=== PATIENT | male | born 1980 | race Caucasian/White ===

== ENCOUNTER 2020-05-02 23:05 | Inpatient (IN) | payer SELFPAY ==
[~2020-05-02] VITALS: Ht 167.6 cm; Wt 100.0 kg
--- NOTE | 2020-05-02 23:46 | NUR ---
PT TO RADIOLOGY VIA STRETCHER AT THIS TIME.
[2020-05-02 23:59] LABS: HEMATOCRIT 41.1 % (42.0-54.0); HEMOGLOBIN 14.5 g/dL (13.5-17.5); LYMPHOCYTES 13.5 % (15-50); MCH 31.8 pg (26.0-34.0); MCHC 35.3 g/dL (31.0-37.0); MCV 90.1 fL (80.0-100.0); MEAN PLATELET VOLUME 8.2 fL (7.4-10.4); NEUTROPHILS 77.5 % (40-80); PLATELET COUNT 189 10x3/uL (130-400); RBC 4.56 10x6/uL (4.20-6.10); RDW 12.8 % (11.5-14.5); WBC 14.7 10x3/uL (4.8-10.8)
[2020-05-03] VITALS (8 sets, daily range): BP systolic 126–165; BP diastolic 81–98; Ht 167.6 cm; Wt 100.0 kg
--- NOTE | 2020-05-03 00:03 | NUR ---
PT RETURNED FROM RADIOLOGY.
[2020-05-03 00:15] LABS: ALBUMIN 3.4 g/dL (3.4-5.0); ALKALINE PHOSPHATASE 70 U/L (30-120); ALT (SGPT) 18 U/L (10-68); BILIRUBIN - TOTAL 0.92 mg/dL (0.2-1.3); CALC OSMOLALITY 268 mosm/kg (275-300); CALCIUM 8.5 mg/dL (8.5-10.1); CARBON DIOXIDE 28.6 mmol/L (21.0-32.0); CHLORIDE - SERUM 99 mmol/L (98-107); CKMB 1.4 U/L (0.0-3.6); GLUCOSE 133 mg/dL (74-106); POTASSIUM - SERUM 3.6 mmol/L (3.5-5.1); PROTEIN - SERUM 7.1 g/dL (6.4-8.2); SODIUM 134 mmol/L (136-145); UREA NITROGEN 10 mg/dL (7-18); eGFR NON AFRICAN AMERICAN 87 mL/min (90-120)
[2020-05-03 02:12] LABS: APTT 28.5 SECONDS (22.8-39.4); INR 1.01 (0.85-1.17); PROTIME 13.2 SECONDS (11.6-15.0)
--- NOTE | 2020-05-03 03:06 | NUR ---
PT'S IV VANCOMYCIN FINISHED AT THIS TIME.
--- NOTE | 2020-05-03 04:34 | NUR ---
PT REQUESTING PAIN MEDICATION, GIVEN ORDERED PRN PAIN MEDICATION.
--- NOTE | 2020-05-03 05:09 | NUR ---
PT GIVEN ICE PACK FOR FACIAL SWELLING AND HEAD OF BED ADJUSTED TO LEVEL OF COMFORT. PT ON MONITOR. CALL LIGHT IN REACH.
[2020-05-03 07:07] LABS: UDS - AMPHET POSITIVE QUAL (NEGATIVE); UDS - BARB NEGATIVE QUAL (NEGATIVE); UDS - BENZO POSITIVE QUAL (NEGATIVE); UDS - COCAINE NEGATIVE QUAL (NEGATIVE); UDS - OPIATE POSITIVE QUAL (NEGATIVE); UDS - PCP NEGATIVE QUAL (NEGATIVE); UDS - THC POSITIVE QUAL (NEGATIVE)
[2020-05-03 07:26] LABS: BILIRUBIN NEGATIVE (NEGATIVE); KETONE NEGATIVE (NEGATIVE); NITRITE NEGATIVE (NEGATIVE); UROBILINOGEN NORMAL mg/dL (< 2)
[2020-05-03 07:27] LABS: WHITE CELLS - URINE 0-5 HPF (0-1)
[2020-05-03 07:28] LABS: BACTERIA NONE SEEN HPF (NONE SEEN); EPITHELIAL CELLS NSEEN /hpf (0-5)
--- NOTE | 2020-05-03 14:20 | NUR ---
RAC PIV PULLED OUT PER PT WHILE AMBULATING TO THE RESTROOM. RESTARTED IN RAC.
--- NOTE | 2020-05-03 15:00 | NUR ---
ZOSYN STOP TIME: 1500
--- NOTE | 2020-05-03 17:10 | NUR ---
VANCOMYCIN STOP TIME: [id number]
[2020-05-04] VITALS: BP 163/93
[2020-05-04 04:00] VITALS: BP 136/86
--- NOTE | 2020-05-04 07:44 | NUR ---
PT RECEIVED ASLEEP IN BED. WAKES TO VOICE. NICOTINE PATCH PLACED PER REQUEST. COMPLAINTS OF PAIN TO LEFT SIDE OF FACE. ASKING WHY IT CANT JUST BE DRAINED.
[2020-05-04 07:52] LABS: BASOPHILS 0.1 % (0-2); EOSINOPHILS 0.5 % (0-7); HEMATOCRIT 42.6 % (42.0-54.0); HEMOGLOBIN 14.4 g/dL (13.5-17.5); IMMATURE GRANULOCYTES 0.3 % (0-5); LYMPHOCYTES 12.5 % (15-50); MCH 31.5 pg (26.0-34.0); MCHC 33.8 g/dL (31.0-37.0); MEAN PLATELET VOLUME 8.9 fL (7.4-10.4); MONOCYTES 12.4 % (2-11); NEUTROPHILS 74.2 % (40-80); PLATELET COUNT 173 10x3/uL (130-400); RBC 4.57 10x6/uL (4.20-6.10); WBC 13.4 10x3/uL (4.8-10.8)
[2020-05-04 08:13] LABS: MCV 93.2 fL (80.0-100.0)
[2020-05-04 08:17] LABS: CALC OSMOLALITY 270 mosm/kg (275-300); CALCIUM 8.1 mg/dL (8.5-10.1); CARBON DIOXIDE 25.5 mmol/L (21.0-32.0); CHLORIDE - SERUM 102 mmol/L (98-107); CREATININE - SERUM 1.1 mg/dL (0.6-1.3); GLUCOSE 152 mg/dL (74-106); POTASSIUM - SERUM 3.9 mmol/L (3.5-5.1); SODIUM 135 mmol/L (136-145); UREA NITROGEN 8 mg/dL (7-18); eGFR NON AFRICAN AMERICAN 78 mL/min (90-120)
--- NOTE | 2020-05-04 08:38 | NUR ---
PT AGITATED WANTING TO KNOW WHATS GOING ON. STATES HE IS GOING TO HAVE TO LEAVE CAUSE HIS TRUCK IS GETTING REPO'D. TOLD HIM IT WOULD BE AMA SO WAIT TILL I COULD SEE ABOUT DOCTOR VISITING WITH HIM. STACEY BOURNE MESSAGED.
--- NOTE | 2020-05-04 09:30 | NUR ---
TALKED WITH STACEY BOURNE REGARDING POSSIBLE DISCHARGE. STATES PT NEEDS IV ANTIBIOTICS AND IF LEAVES WILL NEED TO BE AMA. WENT TO UPDATE PT AND REMOVE IV AND SIGN AMA PAPERS TO FIND PT GONE, IV PULLED OUT AND BLOOD ON FLOOR.
== END 2020-05-04 09:30 | disposition left against medical advice (07) | DRG 603 ==
LOC: D.ER 23:05 → D.EDHOLD 05-03 01:13 → D.M2 05-03 01:13
PROVIDERS: Family Medicine; ADMIT Family Medicine; ATTEND Family Medicine
DX: L03.211 Cellulitis of face (principal); F17.203 Nicotine dependence unspecified, with withdrawal; E87.1 Hypo-osmolality and hyponatremia; F15.10 Other stimulant abuse, uncomplicated; F12.10 Cannabis abuse, uncomplicated; F11.10 Opioid abuse, uncomplicated; F13.10 Sedative, hypnotic or anxiolytic abuse, uncomplicated